=== PATIENT | female | born 1955 | race Caucasian/White ===

== ENCOUNTER 2018-03-14 18:28 | Emergency (ER) | payer MEDICARE, MEDICAID ==
[~2018-03-14] VITALS: Ht 170.2 cm; Wt 103.5 kg
[2018-03-14] MEDS ORDERED: mupirocin 2% ointment 22GM TP STA (18:59)
[2018-03-14] MEDS ORDERED: sulfamethoxazole/trimethoprim DS (800/160mg) tablet PO ONE (19:00)
[2018-03-14] MEDS ORDERED: cephalexin 500mg capsule PO ONE (19:00)
[2018-03-14] MEDS ORDERED: MUPI22OI30 TOP (19:03)
[2018-03-14] MEDS ORDERED: CEPH250T PO (19:03)
[2018-03-14] MEDS ORDERED: SULF1TAB49 PO (19:03)
[2018-03-14 19:52] VITALS: BP 154/86
== END 2018-03-14 19:57 | disposition home or self-care (01) ==
LOC: ER 18:29
DX: S91.102A Unspecified open wound of left great toe without damage to nail, initial encounter (principal); L97.528 Non-pressure chronic ulcer of other part of left foot with other specified severity; R45.851 Suicidal ideations; G62.9 Polyneuropathy, unspecified; Z59.0 Homelessness; Z79.899 Other long term (current) drug therapy; W17.81XA Fall down embankment (hill), initial encounter; Y93.89 Activity, other specified; Y99.8 Other external cause status; Y92.89 Other specified places as the place of occurrence of the external cause
CPT/HCPCS: 73630; 99284; A6255